=== PATIENT | female | born 1960 | race Caucasian/White ===

== ENCOUNTER → 2025-02-23 | Outpatient (CLI) | payer OTHER | END | disposition home or self-care (01) | LOC: RAH 02-21 09:30 | PROVIDERS: ATTEND Internal Medicine Nephrology | DX: Z12.31 Encounter for screening mammogram for malignant neoplasm of breast (principal) | CPT/HCPCS: 77063; 77067 ==

== ENCOUNTER → 2025-03-13 | Outpatient (CLI) | payer OTHER ==
--- NOTE | 2025-03-16 13:36 | HMCIMG ---
BILATERAL BREAST ULTRASOUND: CLINICAL HISTORY: Follow-up for mammogram from 02/23/2025 Finding: Real-time examination of the both breasts demonstrates mildly heterogeneous echotexture throughout both the breasts without evidence of focal solid or cystic masses. There are bilateral benign appearing axillary lymph node seen on the right there are 2 lymph nodes identified measuring 1.2 x 0.7 x 1.1 cm the second lymph node measuring 0.9 x 0.5 x 0.9 cm. The left axillary also has a 2 benign-appearing lymph node measuring 1.6 x 0.6 x 1.2 cm the second lymph node measuring 1.2 x 0.8 x 0.8 cm. IMPRESSION: No mass or cyst identified I would recommend annual mammography with tomography with bilateral breast sonogram due to nodular breast CATEGORY 2: BENIGN FINDINGS Recommend monthly self breast exam as well as annual clinical examination. A negative x-ray should not delay biopsy if a dominant or clinically suspicious mass is present, since 8-10% of cancers are not identified by mammography. Dense breasts particularly, may obscure an underlying neoplasm. Some of these may be detected clinically and therefore, clinical examination is an essential part of breast evaluation. .
== END | disposition home or self-care (01) ==
LOC: RAH 09:27
PROVIDERS: ATTEND Internal Medicine Nephrology
DX: R92.333 Mammographic heterogeneous density, bilateral breasts (principal); R92.8 Other abnormal and inconclusive findings on diagnostic imaging of breast